=== PATIENT | female | born 1975 | race Caucasian/White ===

== ENCOUNTER 2019-07-24 14:54 | Emergency (ER) | payer BC ==
[~2019-07-24] VITALS: Ht 167.6 cm; Wt 115.0 kg
[2019-07-24 14:58] VITALS: Ht 167.6 cm; Wt 115.0 kg
[2019-07-24] MEDS ORDERED: GLUCOPHAGE1000 MG PO (15:00)
[2019-07-24] MEDS ORDERED: NORVASC5 MG PO (15:00)
[2019-07-24] MEDS ORDERED: TOPROL XL100 MG PO (15:01)
[2019-07-24] MEDS ORDERED: LEVEMIR IN100 UNITS/ SC (15:01)
[2019-07-24] MEDS ORDERED: MULTI-DAY VITAM1 TAB PO (15:01)
[2019-07-24] MEDS ORDERED: BAYER CHEWABLE81 MG PO (15:01)
[2019-07-24 15:56] LABS: BASOPHILS 0.3 % (0-2); EOSINOPHILS 5.3 % (0-7); HEMATOCRIT 43.6 % (36.0-48.0); HEMOGLOBIN 15.2 g/dL (12-16); IMMATURE GRANULOCYTES 0.4 % (0-5); LYMPHOCYTES 28.2 % (15-50); MCH 29.6 pg (26.0-34.0); MCHC 34.9 g/dL (31.0-37.0); MEAN PLATELET VOLUME 10.8 fL (7.4-10.4); MONOCYTES 4.7 % (2-11); NEUTROPHILS 61.1 % (40-80); PLATELET COUNT 294 10x3/uL (130-400); RBC 5.13 10x6/uL (4.00-5.40); RDW 13.5 % (11.5-14.5); WBC 14.6 10x3/uL (4.8-10.8)
[2019-07-24 16:01] LABS: CALC OSMOLALITY 274 mosm/kg (275-300); CALCIUM 9.5 mg/dL (8.5-10.1); CARBON DIOXIDE 26.6 mmol/L (21.0-32.0); CHLORIDE - SERUM 100 mmol/L (98-107); CREATININE - SERUM 0.8 mg/dL (0.6-1.3); GLUCOSE 184 mg/dL (74-106); POTASSIUM - SERUM 3.8 mmol/L (3.5-5.1); SODIUM 135 mmol/L (136-145); UREA NITROGEN 12 mg/dL (7-18); URIC ACID 5.5 mg/dL (2.6-7.2); eGFR NON AFRICAN AMERICAN 83 mL/min (90-120)
[2019-07-24] MEDS ORDERED: VOLTAREN75 MG PO (17:32)
[2019-07-24 17:47] VITALS: BP 125/68
== END 2019-07-24 17:48 | disposition home or self-care (01) ==
LOC: D.ER 14:54
PROVIDERS: Emergency Medicine
DX: M76.61 Achilles tendinitis, right leg (principal); E11.9 Type 2 diabetes mellitus without complications

== ENCOUNTER 2019-11-25 05:32 | Emergency (ER) | payer OTHER ==
[~2019-11-25] VITALS: Ht 167.6 cm; Wt 116.4 kg
[~2019-11-25 05:32] MED LIST: BAYER CHEWABLE81 MG PO; GLUCOPHAGE1000 MG PO; LEVEMIR IN100 UNITS/ SC; MULTI-DAY VITAM1 TAB PO; NORVASC5 MG PO; TOPROL XL100 MG PO; VOLTAREN75 MG PO
[2019-11-25 05:39] VITALS: BP 170/105; Ht 167.6 cm; Wt 116.4 kg
[2019-11-25] MEDS ORDERED: HYDROCODON-ACE1 EAC2 PO (05:53)
== END 2019-11-25 06:03 | disposition home or self-care (01) ==
LOC: D.ER 05:32
DX: M79.641 Pain in right hand (principal); M25.521 Pain in right elbow; M25.511 Pain in right shoulder; M25.531 Pain in right wrist; X58.XXXA Exposure to other specified factors, initial encounter; Y93.9 Activity, unspecified; Y92.9 Unspecified place or not applicable; E11.9 Type 2 diabetes mellitus without complications; I10 Essential (primary) hypertension; Z79.84 Long term (current) use of oral hypoglycemic drugs

== ENCOUNTER 2021-05-12 09:16 | Observation (INO) | payer BC ==
[~2021-05-12] VITALS: Ht 167.6 cm; Wt 105.5 kg
[~2021-05-12 09:16] MED LIST changes: +HYDROCODON-ACE1 EAC2 PO
[2021-05-12 09:25] VITALS: BP 194/100; Ht 167.6 cm; Wt 105.5 kg
[2021-05-12] MEDS ORDERED: FARXIGA10 MG PO (09:29)
[2021-05-12] MEDS ORDERED: TOUJEO SOL300 UNIT/1 SC (09:32)
[2021-05-12 09:51] LABS: BASOPHILS 0.8 % (0-2); EOSINOPHILS 6.1 % (0-7); HEMATOCRIT 43.8 % (36.0-48.0); HEMOGLOBIN 14.4 g/dL (12-16); MCH 28.5 pg (26.0-34.0); MCHC 32.9 g/dL (31.0-37.0); MCV 86.6 fL (80.0-100.0); MEAN PLATELET VOLUME 8.5 fL (7.4-10.4); MONOCYTES 5.3 % (2-11); NEUTROPHILS 64.8 % (40-80); PLATELET COUNT 340 10x3/uL (130-400); RBC 5.05 10x6/uL (4.00-5.40); RDW 13.6 % (11.5-14.5); WBC 17.3 10x3/uL (4.8-10.8)
[2021-05-12 09:59] LABS: CALC OSMOLALITY 276 mosm/kg (275-300); CALCIUM 9.4 mg/dL (8.5-10.1); CARBON DIOXIDE 23.3 mmol/L (21.0-32.0); CHLORIDE - SERUM 100 mmol/L (98-107); CREATININE - SERUM 0.7 mg/dL (0.6-1.3); GLUCOSE 209 mg/dL (74-106); POTASSIUM - SERUM 3.6 mmol/L (3.5-5.1); SODIUM 135 mmol/L (136-145); UREA NITROGEN 16 mg/dL (7-18); eGFR NON AFRICAN AMERICAN > 90 mL/min (90-120)
[2021-05-12 10:16] LABS: ALBUMIN 3.9 g/dL (3.4-5.0); ALKALINE PHOSPHATASE 100 U/L (30-120); ALT (SGPT) 34 U/L (10-68); CKMB 0.5 U/L (0.0-3.6); CREATINE KINASE 93 UL (21-215); MAGNESIUM - SERUM 1.8 mg/dL (1.8-2.4); PROTEIN - SERUM 8.5 g/dL (6.4-8.2); TROPONIN-I < 0.017 ng/mL (0.000-0.060)
[2021-05-12 11:03] LABS: INR 1.07 (0.85-1.17); PROTIME 12.9 SECONDS (11.6-15.0)
[2021-05-12 11:04] LABS: APTT 32.4 SECONDS (22.8-39.4)
[2021-05-12 12:11] LABS: ERYTHROCYTE SEDIMENTATION RATE 37 mm/hr (0-20)
--- NOTE | 2021-05-13 17:26 | MORECARE ---
CASE MANAGEMENT DISCHARGE SUMMARY PATIENT: FLORI CISNEROS UNIT: [id number] ADM DATE: 05/12/21 AGE: 45 : 77 SEX: F ROOM/BED: D.[facility] AUTHOR: SALVADOR,DOC PHYSICIAN: REFERRING PHYSICIAN: JR DURAN MD DATE OF SERVICE: 05/13/21 Case Management Discharge Planning Summary DCP REVIEW SUMMARY ANTICIPATED D/C DATE: EXPECTED LOS : CASE STATUS: DCP Not started INITIAL REVIEW: 05/12/2021 INITIAL REVIEWER: Ragini Pineda FINAL DISCHARGE DISPOSITION: : FINAL REVIEWER: FINAL REVIEW DATE: DCP [employer] QUESTION: ANSWER : PATIENT: FLORI CISNEROS ENCOUNTER: [id number] MEDICAL RECORD#: [id number] ADMISSION DATE: 05/12/2021 DISCHARGE DATE: 05/12/2021 ATTENDING MD: AMBAR: AGE: 45 MARITAL STATUS: M DC PLAN ID: [id number] FACILITY: [facility] PRINTED ON: 05/13/21 17:26 CT All edits/amendments must be made on the electronic document DICTATION DATE: 05/13/211725 TUBE PULLER: GRABIEL 05/13/211725 RPT#: [id number] DC DATE:05/12/21 STATUS: DIS IN [facility] [address] [place] [address] END OF REPORT
[2021-05-14 12:39] LABS: PATH REVIEW PERIPHERAL SMEAR REVIEWED
== END 2021-05-12 14:00 | disposition home or self-care (01) ==
LOC: D.ER 09:16 → OBSVTIME 10:38 → D.EDHOLD 10:38 → D.M2 13:44
PROVIDERS: Family Medicine; ADMIT Family Medicine; ATTEND Family Medicine
DX: I16.0 Hypertensive urgency (principal); R23.4 Changes in skin texture; E11.9 Type 2 diabetes mellitus without complications; R23.0 Cyanosis; D72.829 Elevated white blood cell count, unspecified